=== PATIENT | male | born 1990 | race Hispanic/Latino ===

== ENCOUNTER 2025-03-09 07:42 | Emergency (ER) | payer OTHER ==
--- OUTSIDE RECORDS SUMMARY | 2025-03-09 07:47 | XMS REPORT | Continuity of Care Document ---
Author Name Unknown Address [address] [facility] [place] [address] [facility] [place] Address [address] [facility] [address] [place] [address] Care Team Providers Care Wrinkle Chaser Name Role Phone Tayler Oneal Attending Clinician Unavailable Kassy Qureshi Attending Clinician Unavailable Raina Katz Attending Clinician Unavailable Payers Payer Name Policy Type Policy Number Effective Date Expirati on Date Source AETNA 53 [id number] [facility] AETNA 53 [id number] 2022 00:00:00 [place] [address] [id number] 2018 00:00:00 [facility] Problems Condition Name Condition Details Condition Category Status Onset Date Resolution Date Last Treatment Date Treating Clinician Comments Source [id number] GERD without esophagiti s Problem [facility] [id number] Fatty liver disease, nonalcohol ic Problem [facility] [id number] Liver enzyme elevation Problem [facility] [id number] Encounter for general adult medical examinatio n with abnormal findings Problem [facility] Elevated levels of transamina se & lactic acid dehydrogen ase Elevated LDH Problem [facility] History of Peacock's palsy H/O Peacock's palsy Problem [facility] [id number] Polydipsia Problem Comm on [facility] Anxiety Anxiety Problem Common [facility] [id number] Exercise intoleranc e Problem Common [facility] Primary insomnia Primary insomnia Problem [facility] Fatigue Fatigue, unspecifie d type Problem [facility] [id number] Morbid (severe) obesity due to excess calories Problem Common [facility] Mild major depression , single episode Current mild episode of major depressive disorder, unspecifie d whether recurrent Problem [facility] [id number] Polyuria Problem [facility] [id number] Obstructiv e sleep apnea (adult) (pediatric ) Problem [facility] [id number] Paresthesi a of skin Problem [facility] [id number] Hyperlipid emia, mixed Problem [facility] [id number] Essential hypertensi on Problem Common [facility] [id number] Anesthesia of skin Problem [facility] Gastroesop hageal reflux disease Gastroesop hageal reflux disease, unspecifie d whether esophagiti s present Problem [facility] [id number] Mild exercise-i nduced asthma Problem [facility] Allergic rhinitis Non-season al allergic rhinitis, unspecifie d trigger Problem [facility] Vitamin D deficiency Vitamin D deficiency Problem [facility] [id number] Uncontroll ed type 2 diabetes mellitus with hyperglyce bobbi Problem [facility] [id number] Dependence on other enabling machines and devices Problem [facility] Allergies, Adverse Reactions, Alerts Allergy Name Allergy Type Status Severity Reaction(s) Onset Date Inactive Date Treating Clinician Comments Source rosuvast atin rosuvast atin Active Unknown [facility] Social History Social Habit Start Date Stop Date Quantity Comments Source History of Tobacco Use [facility] Sex Assigned At [facility] Smoking Status Start Date Stop Date Source Never Smoker [facility] Medications Ordered Medication Name Filled Medication Name Start Date Stop Date Current Medication? Ordering Clinician Indication Dosage Frequency Signature (SIG) Comments Components Source Albuterol Sulfate 108 (90 Base) MCG/ACT Albuterol Sulfate 108 (90 Base) MCG/ACT 3- 00:00: 00 No 1{puff_ as_need ed} 6xD Albuterol Sulfate 108 (90 Base) MCG/ACT metFORMIN HCl ER 500 MG metFORMIN HCl ER 500 MG 4-10 00:00: 00 No 1{table t_with_ evening _meal} BID metFORMIN HCl ER 500 MG Pravastatin Sodium 20 MG Pravastatin Sodium 20 MG 3- 00:00: 00 No 1{table t} QD Pravastati n Sodium 20 MG Kenalog (Triamcinol one) Kenalog (Triamcinol one) 2017-10 00:00: 00 No 40mg [facility] Flonase 50 MCG/ACT Flonase 50 MCG/ACT No 1{spray _in_eac h_nostr il} QD Flonase 50 MCG/ACT ZyrTEC Allergy 10 MG ZyrTEC Allergy 10 MG No 1{table t} QD ZyrTEC Allergy 10 MG Albuterol Sulfate HFA 108 (90 Base) MCG/ACT Albuterol Sulfate HFA 108 (90 Base) MCG/ACT No 1{puff_ as_need ed} Albuterol Sulfate HFA 108 (90 Base) MCG/ACT FreeStyle Lite Test - FreeStyle Lite Test - No FreeStyle Lite Test - Mounjaro 12.5 MG/0.5ML Mounjaro 12.5 MG/0.5ML No .5{ml} Mounjaro 12.5 MG/0.5ML Immunizations Ordered Immunization Name Filled Immunization Name Date Status Comments Source Moderna COVID-19 Vaccine (Low Dose Booster) Moderna COVID-19 Vaccine (Low Dose Booster) 2021-09-14 16:08:00 [facility] Moderna COVID-19 Vaccine (Low Dose Booster) Moderna COVID-19 Vaccine (Low Dose Booster) 2021-09-14 16:08:00 [facility] Moderna COVID-19 Vaccine (Low Dose Booster) Moderna COVID-19 Vaccine (Low Dose Booster) 2021-09-14 16:08:00 Completed [facility] Moderna COVID-19 Vaccine (Low Dose Booster) Moderna COVID-19 Vaccine (Low Dose Booster) 2021-09-14 16:08:00 Completed [facility] Moderna COVID-19 Vaccine (Low Dose Booster) Moderna COVID-19 Vaccine (Low Dose Booster) 2021-09-14 16:08:00 Completed [facility] 2021-07-12 09:37:00 [facility] 2021-07-12 09:37:00 [facility] 2021-07-12 09:37:00 Completed [facility] 2021-07-12 09:37:00 [facility] 2021-07-12 09:37:00 [facility] 2021-07-12 09:37:00 Completed [facility] Moderna COVID-19 Vaccine Moderna COVID-19 Vaccine 2021-01-10 16:09:00 Completed [facility] Moderna COVID-19 Vaccine Moderna COVID-19 Vaccine 2021-01-10 16:09:00 Completed [facility] Moderna COVID-19 Vaccine Moderna COVID-19 Vaccine 2021-01-10 16:09:00 Completed [facility] Moderna COVID-19 Vaccine Moderna COVID-19 Vaccine 2021-01-10 16:09:00 Completed [facility] Moderna COVID-19 Vaccine Moderna COVID-19 Vaccine 2021-01-10 16:09:00 Completed [facility] Moderna COVID-19 Vaccine Moderna COVID-19 Vaccine 2020-12-15 16:09:00 Completed [facility] Moderna COVID-19 Vaccine Moderna COVID-19 Vaccine 2020-12-15 16:09:00 Completed [facility] Moderna COVID-19 Vaccine Moderna COVID-19 Vaccine 2020-12-15 16:09:[facility] COVID-19 Vacc[facility] 2020-12-15 16:09:00 Completed [facility] Moderna COVID-19 Vaccine Moderna COVID-19 Vaccine 2020-12-15 16:09:00 Completed [facility] Fluarix (IIV4) - SDS - 0.5mL Fluarix (IIV4) - SDS - 0.5mL 2020-07-09 11:31:00 Completed [facility] Afluria single dose Afluria single dose 11:31:00 Completed [facility] Afluria single dose Afluria single dose 11:31:00 Completed [facility] Afluria single dose Afluria single dose 11:31:00 Completed [facility] Afluria single dose Afluria single dose 11:31:00 Completed [facility] Afluria single dose Afluria single dose 11:31:00 [facility] Kenalog (Triamcinolone) Kenalog (Triamcinolone) 2019-07-29 16:54:00 Completed [facility] Flucelvax - multidose vial Flucelvax - multidose vial 2019-07-29 16:53:00 Completed [facility] Flucelvax - multidose vial Flucelvax - multidose vial 2019-07-29 16:53:00 Completed [facility] Flucelvax - multidose vial Flucelvax - multidose vial 2019-07-29 16:53:00 Completed [facility] Flucelvax - multidose vial Flucelvax - multidose vial 2019-07-29 16:53:00 Completed [facility] Flucelvax - multidose vial Flucelvax - multidose vial 2019-07-29 16:53:00 Completed [facility] Flucelvax - multidose vial Flucelvax - multidose vial 2019-07-29 16:53:00 Completed [facility] Flucelvax - multidose vial Flucelvax - multidose vial 2019-07-29 00:00:00 Completed [facility] Kenalog (Triamcinolone) Kenalog (Triamcinolone) 2018-08-15 15:53:00 Completed [facility] Moderna COVID-19 Vaccine (Low Dose Booster) Moderna COVID-19 Vaccine (Low Dose Booster) Unknown Completed [facility] Moderna COVID-19 Vaccine Moderna COVID-19 Vaccine Unknown Completed [facility] Afluria single dose Afluria single dose Unknown Completed [facility] Flucelvax - multidose vial Flucelvax - multidose vial Unknown Completed [facility] Afluria Afluria Unknown Completed [facility] Moderna COVID-19 Vaccine (Low Dose Booster) Moderna COVID-19 Vaccine (Low Dose Booster) Unknown Completed [facility] Moderna COVID-19 Vaccine Moderna COVID-19 Vaccine Unknown Completed [facility] Afluria single dose Afluria single dose Unknown Completed [facility] Flucelvax - multidose vial Flucelvax - multidose vial Unknown Completed [facility] Afluria Afluria Unknown Completed [facility] Moderna COVID-19 Vaccine (Low Dose Booster) Moderna COVID-19 Vaccine (Low Dose Booster) Unknown Completed [facility] Moderna COVID-19 Vaccine Moderna COVID-19 Vaccine Unknown Completed [facility] Afluria single dose Afluria single dose Unknown Completed [facility] Flucelvax - multidose vial Flucelvax - multidose vial Unknown Completed [facility] Afluria Afluria Unknown Completed [facility] Moderna COVID-19 Vaccine (Low Dose Booster) Moderna COVID-19 Vaccine (Low Dose Booster) Unknown Completed [facility] Moderna COVID-19 Vaccine Moderna COVID-19 Vaccine Unknown Completed [facility] Afluria (IIV4) - 3 years and older - SDS - 0.5mL Afluria (IIV4) - 3 years and older - SDS - 0.5mL Unknown Completed [facility] Flucelvax (ccIIV4) - MDV - 0.5mL Flucelvax (ccIIV4) - MDV - 0.5mL Unknown Completed [facility] Afluria Afluria Unknown Completed [facility] Moderna COVID-19 Vaccine (Low Dose Booster) Moderna COVID-19 Vaccine (Low Dose Booster) Unknown Completed [facility] Moderna COVID-19 Vaccine Moderna COVID-19 Vaccine Unknown Completed [facility] Afluria (IIV4) - 3 years and older - SDS - 0.5mL Afluria (IIV4) - 3 years and older - SDS - 0.5mL Unknown Completed [facility] Flucelvax (ccIIV4) - MDV - 0.5mL Flucelvax (ccIIV4) - MDV - 0.5mL Unknown Completed [facility] Afluria Afluria Unknown Completed [facility] Moderna COVID-19 Vaccine (Low Dose Booster) Moderna COVID-19 Vaccine (Low Dose Booster) Unknown Completed [facility] Moderna COVID-19 Vaccine Moderna COVID-19 Vaccine Unknown Completed [facility] Afluria (IIV4) - 3 years and older - SDS - 0.5mL Afluria (IIV4) - 3 years and older - SDS - 0.5mL Unknown Completed [facility] Flucelvax (ccIIV4) - MDV - 0.5mL Flucelvax (ccIIV4) - MDV - 0.5mL Unknown Completed [facility] Afluria Afluria Unknown Completed [facility] - [facility] Moderna COVID-19 Vaccine (Low Dose Booster) Moderna COVID-19 Vaccine (Low Dose Booster) Unknown Completed [facility] Moderna COVID-19 Vaccine Moderna COVID-19 Vaccine Unknown Completed [facility] Afluria (IIV4) - 3 years and older - SDS - 0.5mL Afluria (IIV4) - 3 years and older - SDS - 0.5mL Unknown Completed [facility] Flucelvax (ccIIV4) - MDV - 0.5mL Flucelvax (ccIIV4) - MDV - 0.5mL Unknown Completed [facility] Afluria Afluria Unknown Completed [facility] Moderna COVID-19 Vaccine (Low Dose Booster) Moderna COVID-19 Vaccine (Low Dose Booster) Unknown Completed [facility] Moderna COVID-19 Vaccine Moderna COVID-19 Vaccine Unknown Completed [facility] Afluria (IIV4) - 3 years and older - SDS - 0.5mL Afluria (IIV4) - 3 years and older - SDS - 0.5mL Unknown Completed [facility] Flucelvax (ccIIV4) - MDV - 0.5mL Flucelvax (ccIIV4) - MDV - 0.5mL Unknown Completed [facility] Afluria Afluria Unknown Completed [facility] Moderna COVID-19 Vaccine (Low Dose Booster) Moderna COVID-19 Vaccine (Low Dose Booster) Unknown Completed [facility] Moderna COVID-19 Vaccine Moderna COVID-19 Vaccine Unknown Completed [facility] Afluria (IIV4) - 3 years and older - SDS - 0.5mL Afluria (IIV4) - 3 years and older - SDS - 0.5mL Unknown Completed [facility] Flucelvax (ccIIV4) - MDV - 0.5mL Flucelvax (ccIIV4) - MDV - 0.5mL Unknown Completed [facility] Afluria Afluria Unknown Completed [facility] MODERNA COVID-19 VACCINE (LOW DOSE BOOSTER) MODERNA COVID-19 VACCINE (LOW DOSE BOOSTER) Unknown Completed [facility] Moderna COVID-19 Vaccine Moderna COVID-19 Vaccine Unknown Completed [facility] Afluria (IIV4) - 3 years and older - SDS - 0.5mL Afluria (IIV4) - 3 years and older - SDS - 0.5mL Unknown Completed [facility] Flucelvax (ccIIV4) - MDV - 0.5mL Flucelvax (ccIIV4) - MDV - 0.5mL Unknown Completed [facility] Afluria [facility]fluria [facility] MODERNA COVID-19 VACCINE (LOW DOSE BOOSTER) Unknown Completed [facility] Moderna COVID-19 Vaccine Moderna COVID-19 Vaccine Unknown Completed [facility] Afluria (IIV4) - 3 years and older - SDS - 0.5mL Afluria (IIV4) - 3 years and older - SDS - 0.5mL Unknown Completed [facility] Flucelvax (ccIIV4) - MDV - 0.5mL Flucelvax (ccIIV4) - MDV - 0.5mL Unknown Completed [facility] Afluria Afluria Unknown Completed [facility] Boostrix (Tdap) Boostrix (Tdap) Unknown Completed [facility] Vital Signs Vital Name Observation Time Observation Value Comments S ource height 2024-11-18 11:00:00 66 [in_i] Commo n [facility] weight 2024-11-18 11:00:00 169 [lb_av] Comm on [facility] bmi 2024-11-18 11:00:00 27.27 kg/m2 Comm on [facility] height 2024-09-17 15:40:00 66 [in_i] Commo n [facility] weight 2024-09-17 15:40:00 195 [lb_av] Comm on [facility] bmi 2024-09-17 15:40:00 31.47 kg/m2 Comm on [facility] height 2024-08-18 12:00:00 66 [in_i] Commo n [facility] weight 2024-08-18 12:00:00 209 [lb_av] Comm on [facility] bmi 2024-08-18 12:00:00 33.73 kg/m2 Comm on [facility] height 2024-04-28 16:00:00 66 [in_i] Commo n [facility] weight 2024-04-28 16:00:00 205 [lb_av] Comm on [facility] bmi 2024-04-28 16:00:00 33.08 kg/m2 Comm on [facility] height 2024-01-23 13:00:00 66 [in_i] Commo n [facility] weight 2024-01-23 13:00:00 208 [lb_av] Comm on [facility] temperature 2024-01-23 13:00:00 97.0 [degF] Com mon [facility] bmi 2024-01-23 13:00:00 33.57 kg/m2 Comm on [facility] oximetry 2024-01-23 13:00:00 97 % Commo n [facility] respiratory rate 2024-01-23 13:00:00 16 /min Common [facility] blood pressure systolic 2024-01-23 13:00:00 124 mm[Hg] Common [facility] blood pressure diastolic 2024-01-23 13:00:00 72 mm[Hg] Common [facility] height 2023-10-24 16:00:00 66 [in_i] Commo n [facility] weight 2023-10-24 16:00:00 208 [lb_av] Comm on [facility] temperature 2023-10-24 16:00:00 97.2 [degF] Com mon [facility] bmi 2023-10-24 16:00:00 33.57 kg/m2 Comm on [facility] oximetry 2023-10-24 16:00:00 99 % Commo n [facility] respiratory rate 2023-10-24 16:00:00 16 /min Common [facility] blood pressure systolic 2023-10-24 16:00:00 124 mm[Hg] [facility] blood pressure diastolic 2023-10-24 16:00:00 72 mm[Hg] [facility] height 2023-10-11 08:20:00 66 [in_i] Commo n [facility] weight 2023-10-11 08:20:00 202.4 [lb_av] Co mmon [facility] temperature 2023-10-11 08:20:00 98.5 [degF] Com [facility] bmi 2023-10-11 08:20:00 32.66 kg/m2 Comm on [facility] oximetry 2023-10-11 08:20:00 99 % Commo n [facility] respiratory rate 2023-10-11 08:20:00 16 /min Common [facility] blood pressure systolic 2023-10-11 08:20:00 124 mm[Hg] Common [facility] blood pressure diastolic 2023-10-11 08:20:00 82 mm[Hg] Common [facility] height 2023-09-21 11:20:00 66 [in_i] Commo n [facility] weight 2023-09-21 11:20:00 209.4 [lb_av] Co mmon [facility] temperature 2023-09-21 11:20:00 97.9 [degF] Com mon [facility] bmi 2023-09-21 11:20:00 33.79 kg/m2 Comm on [facility] oximetry 2023-09-21 11:20:00 97 % Commo n [facility] respiratory rate 2023-09-21 11:20:00 16 /min Common [facility] blood pressure systolic 2023-09-21 11:20:00 128 mm[Hg] Common [facility] blood pressure diastolic 2023-09-21 11:20:00 70 mm[Hg] [facility] height 2023-07-24 16:20:00 66 [in_i] Commo n [facility] weight 2023-07-24 16:20:00 211 [lb_av] Comm on [facility] temperature 2023-07-24 16:20:00 97.2 [degF] Com [facility] bmi 2023-07-24 16:20:00 34.05 kg/m2 Comm on [facility] oximetry 2023-07-24 16:20:00 98 % Commo n [facility] respiratory rate 2023-07-24 16:20:00 16 /min [facility] blood pressure systolic 2023-07-24 16:20:00 124 mm[Hg] Common [facility] blood pressure diastolic 2023-07-24 16:20:00 70 mm[Hg] [facility] height 2023-04-18 15:40:00 66 [in_i] Commo n [facility] weight 2023-04-18 15:40:00 214 [lb_av] Comm on [facility] temperature 2023-04-18 15:40:00 97.4 [degF] Com [facility] bmi 2023-04-18 15:40:00 34.54 kg/m2 Comm on [facility] oximetry 2023-04-18 15:40:00 98 % Commo n [facility] respiratory rate 2023-04-18 15:40:00 16 /min Common [facility] blood pressure systolic 2023-04-18 15:40:00 118 mm[Hg] Common [facility] blood pressure diastolic 2023-04-18 15:40:00 68 mm[Hg] [facility] height 2023-01-17 16:00:00 66 [in_i] Commo n [facility] weight 2023-01-17 16:00:00 214.6 [lb_av] Co mmon [facility] temperature 2023-01-17 16:00:00 97.5 [degF] Com mon [facility] bmi 2023-01-17 16:00:00 34.63 kg/m2 Comm on [facility] oximetry 2023-01-17 16:00:00 99 % Commo n [facility] respiratory rate 2023-01-17 16:00:00 17 /min [facility] blood pressure systolic 2023-01-17 16:00:00 126 mm[Hg] [facility] blood pressure diastolic 2023-01-17 16:00:00 75 mm[Hg] [facility] height 2022-07-20 11:20:00 66 [in_i] Commo n [facility] weight 2022-07-20 11:20:00 203 [lb_av] Comm on [facility] temperature 2022-07-20 11:20:00 98 [degF] Comm on [facility] bmi 2022-07-20 11:20:00 32.76 kg/m2 Comm on [facility] height 2022-04-07 13:40:00 66 [in_i] Commo n [facility] weight 2022-04-07 13:40:00 204 [lb_av] Comm on [facility] temperature 2022-04-07 13:40:00 97.3 [degF] Com mon [facility] bmi 2022-04-07 13:40:00 32.92 kg/m2 Comm on [facility] height 2022-01-10 08:00:00 66 [in_i] Commo n [facility] weight 2022-01-10 08:00:00 198 [lb_av] Comm on [facility] bmi 2022-01-10 08:00:00 31.95 kg/m2 Comm on [facility] height 2021-10-04 08:20:00 66 [in_i] Commo n [facility] weight 2021-10-04 08:20:00 198 [lb_av] Comm on [facility] bmi 2021-10-04 08:20:00 31.95 kg/m2 Comm on [facility] height 2021-07-12 08:20:00 66 [in_i] Commo n [facility] weight 2021-07-12 08:20:00 194 [lb_av] Comm on [facility] temperature 2021-07-12 08:20:00 97.7 [degF] Com [facility] bmi 2021-07-12 08:20:00 31.31 kg/m2 Comm on [facility] oximetry 2021-07-12 08:20:00 98 % Commo n [facility] respiratory rate 2021-07-12 08:20:00 16 /min [facility] blood pressure systolic 2021-07-12 08:20:00 117 mm[Hg] [facility] blood pressure diastolic 2021-07-12 08:20:00 68 mm[Hg] [facility] Encounters Start Date/Time End Date/Time Encounter Type Admission Type Attending [facility] Care Facility Care Department Encounter ID Source 2024-08-19 09:02:00 Outpatient Tayler Oneal [facility] [id number] [facility] 2024-08-15 08:36:00 Outpatient OnealTayler [facility] [id number] [facility] 2024-04-24 16:08:00 Outpatient OnealDashai [facility] [id number] [facility] 2024-01-22 08:41:00 Outpatient Oneal, Tayler [facility] [id number] [facility] 2023-10-24 15:57:00 Outpatient Oneal, Tayler [facility] [id number] [facility] 2023-10-23 14:10:00 Outpatient OnealDashai [facility] [id number] [facility] 2023-04-18 15:42:00 Outpatient OnealTayler [facility] [id number] [facility] 2023-04-16 10:08:00 Outpatient OnealTayler [facility] [id number] [facility] 2023-01-16 08:22:00 Outpatient KieraMamiea [facility] [id number] [facility] 2023-01-09 09:02:00 Outpatient KieraMamiea [facility] [id number] [facility] 2022-07-18 13:52:00 Outpatient Katz, Na [facility] [id number] [facility] 2022-07-10 15:28:01 Outpatient Katz, Na [facility] [id number] [facility] 2022-04-05 11:12:00 Outpatient Katz, Na [facility] [id number] [facility] 2021-11-09 14:19:31 Outpatient Katz, Na [facility] [id number] [facility] 2021-11-09 13:17:14 Outpatient Katz, Na [facility] [id number] [facility] 2021-11-09 12:43:00 Outpatient Katz, Na [facility] [id number] [facility] 2021-11-09 12:42:40 Outpatient Katz, Na [facility] [id number] [facility] 2021-11-09 12:40:32 Outpatient Katz, Na [facility] [id number] [facility] 2021-11-09 12:20:38 Outpatient Katz, Na [facility] [id number] [facility] 2021-11-09 12:20:02 Outpatient Katz, Na [facility] [id number] [facility] 2021-11-09 12:14:59 Outpatient Katz, Na [facility] [id number] [facility] 2021-11-09 12:00:55 Outpatient Katz, Na [facility] [id number] [facility] 2021-11-09 11:57:47 Outpatient Katz, Na [facility] [id number] [facility] 2021-11-09 11:49:13 Outpatient Katz, Na [facility] [id number] [facility] 2025-02-11 00:00:00 2025-02-11 00:00:00 (WEB) [facility] [id number] [facility] 2025-01-28 00:00:00 2025-01-28 00:00:00 (TEL) [facility] [id number] [facility] 2025-01-13 00:00:00 2025-01-13 00:00:00 (WEB) [facility] [id number] [facility] 2024-12-31 00:00:00 2024-12-31 00:00:00 (WEB) STLMLC STLMLC [id number] [facility] 2024-12-29 00:00:00 2024-12-29 00:00:00 (WEB) STLMLC STLMLC [id number] [facility] 2024-12-15 00:00:00 2024-12-15 00:00:00 (WEB) STLMLC STLMLC [id number] [facility] 2024-12-15 00:00:00 2024-12-15 00:00:00 (WEB) STLMLC STLMLC [id number] [facility] 2024-11-18 00:00:00 2024-11-18 00:00:00 OFFICE VISIT ESTAB PT LEVEL 4 STLMLC STLMLC [id number] [facility] 2024-11-10 00:00:00 2024-11-10 00:00:00 (TEL) STLMLC STLMLC [id number] [facility] 2024-10-17 00:00:00 2024-10-17 00:00:00 (TEL) STLMLC STLMLC [id number] [facility] 2024-09-17 00:00:00 2024-09-17 00:00:00 OFFICE VISIT ESTAB PT LEVEL 4 STLMLC STLMLC [id number] [facility] 2024-08-21 00:00:00 2024-08-21 00:00:00 (WEB) STLMLC STLMLC [id number] [facility] 2024-08-19 00:00:00 2024-08-19 00:00:00 (TEL) STLMLC STLMLC [id number] [facility] 2024-08-18 00:00:00 2024-08-18 00:00:00 OFFICE VISIT ESTAB PT LEVEL 4 STLMLC STLMLC [id number] [facility] 2024-07-28 00:00:00 2024-07-28 00:00:00 (TEL) STLMLC STLMLC [id number] [facility] 2024-06-19 00:00:00 2024-06-19 00:00:00 (TEL) STLMLC STLMLC [id number] [facility] 2024-04-28 00:00:00 2024-04-28 00:00:00 OFFICE VISIT ESTAB PT LEVEL 4 STLMLC STLMLC [id number] [facility] 2024-01-23 00:00:00 2024-01-23 00:00:00 (WELLNESS) Wellness Visit STLMLC STLMLC [id number] [facility] 2023-10-24 00:00:00 2023-10-24 00:00:00 OFFICE VISIT ESTAB PT LEVEL 4 STLMLC STLMLC [id number] [facility] 2023-10-11 00:00:00 2023-10-11 00:00:00 OFFICE VISIT ESTAB PT LEVEL 3 STLMLC STLMLC [id number] [facility] 2023-09-21 00:00:00 2023-09-21 00:00:00 OFFICE VISIT ESTAB PT LEVEL 3 STLMLC STLMLC [id number] [facility] 2023-08-02 00:00:00 2023-08-02 00:00:00 (TEL) STLMLC STLMLC [id number] [facility] 2023-07-24 00:00:00 2023-07-24 00:00:00 OFFICE VISIT ESTAB PT LEVEL 4 STLMLC STLMLC [id number] [facility] 2023-05-16 00:00:00 2023-05-16 00:00:00 (TEL) STLMLC STLMLC [id number] [facility] 2023-05-15 00:00:00 2023-05-15 00:00:00 (TEL) STLMLC STLMLC [id number] [facility] 2023-04-18 00:00:00 2023-04-18 00:00:00 OFFICE VISIT ESTAB PT LEVEL 4 STLMLC STLMLC [id number] [facility] 2023-01-17 00:00:00 2023-01-17 00:00:00 (TEL) STLMLC STLMLC [id number] [facility] 2023-01-17 00:00:00 2023-01-17 00:00:00 OFFICE VISIT ESTAB PT LEVEL 4 STLMLC STLMLC [id number] [facility] 2022-10-23 00:00:00 2022-10-23 00:00:00 (TEL) STLMLC STLMLC [id number] [facility] 2022-08-16 00:00:00 2022-08-16 00:00:00 (TEL) STLMLC STLMLC [id number] [facility] 2022-07-20 00:00:00 2022-07-20 00:00:00 OFFICE VISIT ESTAB PT LEVEL 4 STLMLC STLMLC [id number] [facility] 2022-05-08 00:00:00 2022-05-08 00:00:00 (TEL) STLMLC STLMLC [id number] [facility] 2022-05-05 00:00:00 2022-05-05 00:00:00 (TEL) STLMLC STLMLC [id number] [facility] 2022-04-07 00:00:00 2022-04-07 00:00:00 OFFICE VISIT ESTAB PT LEVEL 4 STLMLC STLMLC [id number] [facility] 2022-01-10 00:00:00 2022-01-10 00:00:00 OFFICE VISIT ESTAB PT LEVEL 4 STLMLC STLMLC [id number] [facility] 2021-10-04 00:00:00 2021-10-04 00:00:00 OFFICE VISIT ESTAB PT LEVEL 4 STLMLC STLMLC [id number] [facility] 2021-09-14 00:00:00 2021-09-14 00:00:00 (COVID Inj) COVID Injection STLMLC STLMLC [id number] [facility] 2021-09-12 00:00:00 2021-09-12 00:00:00 (TEL) STLMLC STLMLC [id number] [facility] 2021-07-12 00:00:00 2021-07-12 00:00:00 OFFICE VISIT ESTAB PT LEVEL 4 STLMLC STLMLC [id number] [facility] 2021-04-05 00:00:00 2021-04-05 00:00:00 Outpatient STLMLC STLMLC [id number] [facility] 2021-01-04 00:00:00 2021-01-04 00:00:00 Outpatient STLMLC STLMLC [id number] [facility] 2020-10-29 00:00:00 2020-10-29 00:00:00 Outpatient STLMLC STLMLC [id number] [facility] 2020-10-28 00:00:00 2020-10-28 00:00:00 Outpatient STLMLC STLMLC [id number] [facility] 2020-10-06 00:00:00 2020-10-06 00:00:00 Outpatient STLMLC STLMLC [id number] [facility] 2020-09-22 00:00:00 2020-09-22 00:00:00 Outpatient STLMLC STLMLC [id number] [facility] 2020-08-18 00:00:00 2020-08-18 00:00:00 Outpatient STLMLC STLMLC [id number] [facility] 2020-08-11 00:00:00 2020-08-11 00:00:00 Outpatient STLMLC STLMLC [id number] [facility] 2020-08-05 00:00:00 2020-08-05 00:00:00 Outpatient STLMLC STLMLC [id number] [facility] 2020-07-09 00:00:00 2020-07-09 00:00:00 Outpatient STLMLC STLMLC [id number] [facility] 2019-09-26 13:00:00 2019-09-26 13:00:[address] [facility] [id number] [facility] 2019-09-22 16:47:00 2019-09-22 16:47:[address] [facility] [id number] [facility] 2019-07-29 15:00:00 2019-07-29 15:00:00 [facility] [id number] [facility] 2019-05-16 16:27:00 2019-05-16 16:27:00 [facility] [id number] [facility] 2019-04-28 14:40:00 2019-04-28 14:40:00 [facility] [id number] [facility] 2019-01-27 13:40:00 2019-01-27 13:40:00 [facility] [id number] [facility] 2018-10-22 15:30:00 2018-10-22 15:30:00 [facility] [id number] [facility] 2018-05-22 07:36:00 2018-05-22 07:36:00 [facility] [id number] [facility] 2018-05-21 08:15:00 2018-05-21 08:15:[address] [facility] [id number] [facility] Results Test Description Test Time Test Comments Results Result Co mments Source COMPREHENSIVE METABOLIC [id number] 00:00:00* Test Item Value Reference Range Interpretation Comme nts NUCLEATED RBCS (test code = 81059-3) 0.0 /100 WBC'S See_Comment [Automated message] The system which generated this result transmitted reference range: 0.0 /100 WBC'S. The reference range was not used to interpret this result as normal/abnormal. ABSOLUTE EOSINOPHILS (test code = 35948-8) 0.22 K/UL See_Comment [Automated message] The system which generated this result transmitted reference range: 0.00-0.50 K/UL. The reference range was not used to interpret this result as normal/abnormal. ABSOLUTE LYMPHOCYTES (test code = 58035-4) 1.95 K/UL See_Comment [Automated message] The system which generated this result transmitted reference range: 1.00-4.00 K/UL. The reference range was not used to interpret this result as normal/abnormal. ABSOLUTE MONOCYTES (test code = 02035-0) 0.35 K/UL See_Comment [Automated message] The system which generated this result transmitted reference range: 0.20-1.00 K/UL. The reference range was not used to interpret this result as normal/abnormal. ABSOLUTE NEUTROPHILS (test code = 90757-5) 3.66 K/UL See_Comment [Automated message] The system which generated this result transmitted reference range: 1.50-7.50 K/UL. The reference range was not used to interpret this result as normal/abnormal. BASOPHILS (test code = 95119-0) 0.6 % EOSINOPHILS (test code = 85351-2) 3.5 % HEMATOCRIT (test code = 15135-4) 46.7 % See_Comment [Automated messa ge] The system which generated this result transmitted reference range: 40.0-51.0 %. The reference range was not used to interpret this result as normal/abnormal. HEMOGLOBIN (test code = 718-7) 15.3 G/DL See_Comment [Automated messa ge] The system which generated this result transmitted reference range: 13.5-17.0 G/DL. The reference range was not used to interpret this result as normal/abnormal. LYMPHOCYTES (test code = 51608-4) 31.2 % MCH (test code = 52011-3) 27.8 PG See_Comment [Automated messa ge] The system which generated this result transmitted reference range: 25.0-33.0 PG. The reference range was not used to interpret this result as normal/abnormal. MCHC (test code = 70798-0) 32.8 G/DL See_Comment [Automated messa ge] The system which generated this result transmitted reference range: 31.0-36.0 G/DL. The reference range was not used to interpret this result as normal/abnormal. MCV (test code = 21381-5) 84.8 fL See_Comment [Automated messa ge] The system which generated this result transmitted reference range: 80.0-99.0 fL. The reference range was not used to interpret this result as normal/abnormal. MONOCYTES (test code = 06209-3) 5.6 % NEUTROPHILS (test code = 03955-4) 58.5 % PLATELET COUNT (test code = 67939-7) 255 K/UL See_Comment [Automated messa ge] The system which generated this result transmitted reference range: 130-400 K/UL. The reference range was not used to interpret this result as normal/abnormal. RBC (test code = 00139-4) 5.51 M/UL See_Comment [Automated messa ge] The system which generated this result transmitted reference range: 4.50-6.10 M/UL. The reference range was not used to interpret this result as normal/abnormal. RDW (test code = 15264-5) 12.8 % See_Comment [Automated messa ge] The system which generated this result transmitted reference range: 11.5-15.0 %. The reference range was not used to interpret this result as normal/abnormal. WBC (test code = 31726-9) 6.3 K/UL See_Comment [Automated messa ge] The system which generated this result transmitted reference range: 3.5-11.0 K/UL. The reference range was not used to interpret this result as normal/abnormal. HEMOGLOBIN A1c (test code = 4548-4) 7.0 % See_Comment H [Automated messa ge] The system which generated this result transmitted reference range: 4.2-5.6 %. The reference range was not used to interpret this result as normal/abnormal. CALC LDL CHOL (test code = 67489-7) 85 MG/DL See_Comment [Automated messa ge] The system which generated this result transmitted reference range: <100 MG/DL. The reference range was not used to interpret this result as normal/abnormal. CHOLESTEROL (test code = 2093-3) 139 MG/DL See_Comment [Automated [employer]] The system which generated this result transmitted reference range: <200 MG/DL. The reference range was not used to interpret this result as normal/abnormal. HDL CHOLESTEROL (test code = 2085-9) 34 MG/DL See_Comment L [Automated [employer]] The system which generated this result transmitted reference range: >39 MG/DL. The reference range was not used to interpret this result as normal/abnormal. RISK RATIO LDL/HDL (test code = 87546-0) 2.50 RATIO See_Comment [Automated message] The system which generated this result transmitted reference range: <3.55 RATIO. The reference range was not used to interpret this result as normal/abnormal. TRIGLYCERIDES (test code = 2571-8) 104 MG/DL See_Comment [Automated [employer]] The system which generated this result transmitted reference range: <150 MG/DL. The reference range was not used to interpret this result as normal/abnormal. ALBUMIN, URINE, RANDOM (test code = 92874-8) <0.2 MG/DL NOT ESTAB MG/DL CALC ALBUMIN/CREAT, RND (test code = 63988-6) <4 MG/G See_Comment [Automated [employer]] The system which generated this result transmitted reference range: <30 MG/G. The reference range was not used to interpret this result as normal/abnormal. CREATININE, URINE, CONC. (test code = 2161-8) 45.2 MG/DL NOT ESTAB MG/DL ALBUMIN (test code = 1751-7) 4.9 G/DL See_Comment [Automated [employer]] The system which generated this result transmitted reference range: 3.5-5.2 G/DL. The reference range was not used to interpret this result as normal/abnormal. ALKALINE PHOSPHATASE (test code = 6768-6) 91 U/L See_Comment [Automated message] The system which generated this result transmitted reference range: 40-117 U/L. The reference range was not used to interpret this result as normal/abnormal. BILIRUBIN, TOTAL (test code = 1975-2) 0.6 MG/DL See_Comment [Automated messa ge] The system which generated this result transmitted reference range: <=1.2 MG/DL. The reference range was not used to interpret this result as normal/abnormal. BUN (test code = 3094-0) 12 MG/DL See_Comment [Automated messa ge] The system which generated this result transmitted reference range: 6-20 MG/DL. The reference range was not used to interpret this result as normal/abnormal. CALCIUM (test code = 38977-1) 9.9 MG/DL See_Comment [Automated messa ge] The system which generated this result transmitted reference range: 8.5-10.5 MG/DL. The reference range was not used to interpret this result as normal/abnormal. CALC A/G RATIO (test code = 1759-0) 2.0 RATIO See_Comment [Automated messa ge] The system which generated this result transmitted reference range: 1.0-2.6 RATIO. The reference range was not used to interpret this result as normal/abnormal. CALC BUN/CREAT (test code = 3097-3) 14 RATIO See_Comment [Automated messa ge] The system which generated this result transmitted reference range: 6-28 RATIO. The reference range was not used to interpret this result as normal/abnormal. CALC GLOBULIN (test code = 51558-5) 2.4 G/DL See_Comment [Automated messa ge] The system which generated this result transmitted reference range: 1.9-3.7 G/DL. The reference range was not used to interpret this result as normal/abnormal. CARBON DIOXIDE (test code = 1963-8) 25 MEQ/L See_Comment [Automated messa ge] The system which generated this result transmitted reference range: 19-31 MEQ/L. The reference range was not used to interpret this result as normal/abnormal. CHLORIDE (test code = 2075-0) 104 MEQ/L See_Comment [Automated messa ge] The system which generated this result transmitted reference range: 95-107 MEQ/L. The reference range was not used to interpret this result as normal/abnormal. CREATININE (test code = 2160-0) 0.87 MG/DL See_Comment [Automated messa ge] The system which generated this result transmitted reference range: 0.80-1.40 MG/DL. The reference range was not used to interpret this result as normal/abnormal. eGFR (2020 CKD-EPI) (test code = 65611-4) 115 ML/MIN/1.73 See_Comment [Automated message] The system which generated this result transmitted reference range: >60 ML/MIN/1.73. The reference range was not used to interpret this result as normal/abnormal. GLUCOSE (test code = 1558-6) 134 MG/DL See_Comment H [Automated messa ge] The system which generated this result transmitted reference range: 70-99 MG/DL. The reference range was not used to interpret this result as normal/abnormal. POTASSIUM (test code = 2823-3) 4.3 MEQ/L See_Comment [Automated messa ge] The system which generated this result transmitted reference range: 3.5-5.4 MEQ/L. The reference range was not used to interpret this result as normal/abnormal. PROTEIN, TOTAL (test code = 2885-2) 7.3 G/DL See_Comment [Automated messa ge] The system which generated this result transmitted reference range: 6.1-8.3 G/DL. The reference range was not used to interpret this result as normal/abnormal. AST (test code = 1920-8) 57 U/L See_Comment H [Automated messa ge] The system which generated this result transmitted reference range: 9-50 U/L. The reference range was not used to interpret this result as normal/abnormal. ALT (test code = 1742-6) 89 U/L See_Comment H [Automated messa ge] The system which generated this result transmitted reference range: 5-50 U/L. The reference range was not used to interpret this result as normal/abnormal. SODIUM (test code = 2951-2) 142 MEQ/L See_Comment [Automated messa ge] The system which generated this result transmitted reference range: 133-146 MEQ/L. The reference range was not used to interpret this result as normal/abnormal. CBC W/AUTO [id number] 00:00:00* Test Item Value Reference Range Interpretation Comme nts NUCLEATED RBCS (test code = 41788-9) 0.0 /100 WBC'S See_Comment [Automated messa ge] The system which generated this result transmitted reference range: 0.0 /100 WBC'S. The reference range was not used to interpret this result as normal/abnormal. ABSOLUTE EOSINOPHILS (test code = 41074-2) 0.14 K/UL See_Comment [Automated messa ge] The system which generated this result transmitted reference range: 0.00-0.50 K/UL. The reference range was not used to interpret this result as normal/abnormal. ABSOLUTE LYMPHOCYTES (test code = 09919-3) 1.32 K/UL See_Comment [Automated messa ge] The system which generated this result transmitted reference range: 1.00-4.00 K/UL. The reference range was not used to interpret this result as normal/abnormal. ABSOLUTE MONOCYTES (test code = 73526-0) 0.36 K/UL See_Comment [Automated messa ge] The system which generated this result transmitted reference range: 0.20-1.00 K/UL. The reference range was not used to interpret this result as normal/abnormal. ABSOLUTE NEUTROPHILS (test code = 22029-6) 3.10 K/UL See_Comment [Automated messa ge] The system which generated this result transmitted reference range: 1.50-7.50 K/UL. The reference range was not used to interpret this result as normal/abnormal. BASOPHILS (test code = 86249-5) 0.8 % EOSINOPHILS (test code = 78235-8) 2.8 % HEMATOCRIT (test code = 83089-3) 45.1 % See_Comment [Automated messa ge] The system which generated this result transmitted reference range: 40.0-51.0 %. The reference range was not used to interpret this result as normal/abnormal. HEMOGLOBIN (test code = 718-7) 14.7 G/DL See_Comment [Automated messa ge] The system which generated this result transmitted reference range: 13.5-17.0 G/DL. The reference range was not used to interpret this result as normal/abnormal. LYMPHOCYTES (test code = 78773-7) 26.6 % MCH (test code = 94479-2) 27.6 PG See_Comment [Automated messa ge] The system which generated this result transmitted reference range: 25.0-33.0 PG. The reference range was not used to interpret this result as normal/abnormal. MCHC (test code = 08533-7) 32.6 G/DL See_Comment [Automated messa ge] The system which generated this result transmitted reference range: 31.0-36.0 G/DL. The reference range was not used to interpret this result as normal/abnormal. MCV (test code = 55499-9) 84.8 fL See_Comment [Automated messa ge] The system which generated this result transmitted reference range: 80.0-99.0 fL. The reference range was not used to interpret this result as normal/abnormal. MONOCYTES (test code = 38800-2) 7.2 % NEUTROPHILS (test code = 54452-3) 62.4 % PLATELET COUNT (test code = 25160-4) 258 K/UL See_Comment [Automated messa ge] The system which generated this result transmitted reference range: 130-400 K/UL. The reference range was not used to interpret this result as normal/abnormal. RBC (test code = 85532-7) 5.32 M/UL See_Comment [Automated messa ge] The system which generated this result transmitted reference range: 4.50-6.10 M/UL. The reference range was not used to interpret this result as normal/abnormal. RDW (test code = 49341-4) 13.5 % See_Comment [Automated messa ge] The system which generated this result transmitted reference range: 11.5-15.0 %. The reference range was not used to interpret this result as normal/abnormal. WBC (test code = 11461-8) 5.0 K/UL See_Comment [Automated messa ge] The system which generated this result transmitted reference range: 3.5-11.0 K/UL. The reference range was not used to interpret this result as normal/abnormal. CBC W/AUTO [id number] 00:00:00* Test Item Value Reference Range Interpretation Comme nts NUCLEATED RBCS (test code = 80569-7) 0.0 /100 WBC'S See_Comment [Automated messa ge] The system which generated this result transmitted reference range: 0.0 /100 WBC'S. The reference range was not used to interpret this result as normal/abnormal. ABSOLUTE EOSINOPHILS (test code = 43453-7) 0.18 K/UL See_Comment [Automated messa ge] The system which generated this result transmitted reference range: 0.00-0.50 K/UL. The reference range was not used to interpret this result as normal/abnormal. ABSOLUTE LYMPHOCYTES (test code = 88366-6) 1.93 K/UL See_Comment [Automated messa ge] The system which generated this result transmitted reference range: 1.00-4.00 K/UL. The reference range was not used to interpret this result as normal/abnormal. ABSOLUTE MONOCYTES (test code = 28603-9) 0.41 K/UL See_Comment [Automated messa ge] The system which generated this result transmitted reference range: 0.20-1.00 K/UL. The reference range was not used to interpret this result as normal/abnormal. ABSOLUTE NEUTROPHILS (test code = 44426-8) 3.57 K/UL See_Comment [Automated messa ge] The system which generated this result transmitted reference range: 1.50-7.50 K/UL. The reference range was not used to interpret this result as normal/abnormal. BASOPHILS (test code = 78569-1) 0.7 % EOSINOPHILS (test code = 98122-6) 2.9 % HEMATOCRIT (test code = 50376-2) 50.3 % See_Comment [Automated messa ge] The system which generated this result transmitted reference range: 40.0-51.0 %. The reference range was not used to interpret this result as normal/abnormal. HEMOGLOBIN (test code = 718-7) 16.1 G/DL See_Comment [Automated messa ge] The system which generated this result transmitted reference range: 13.5-17.0 G/DL. The reference range was not used to interpret this result as normal/abnormal. LYMPHOCYTES (test code = 98814-9) 31.4 % MCH (test code = 76666-1) 26.6 PG See_Comment [Automated messa ge] The system which generated this result transmitted reference range: 25.0-33.0 PG. The reference range was not used to interpret this result as normal/abnormal. MCHC (test code = 15744-0) 32.0 G/DL See_Comment [Automated messa ge] The system which generated this result transmitted reference range: 31.0-36.0 G/DL. The reference range was not used to interpret this result as normal/abnormal. MCV (test code = 19403-4) 83.0 fL See_Comment [Automated messa ge] The system which generated this result transmitted reference range: 80.0-99.0 fL. The reference range was not used to interpret this result as normal/abnormal. MONOCYTES (test code = 08327-1) 6.7 % NEUTROPHILS (test code = 83920-8) 58.0 % PLATELET COUNT (test code = 80487-1) 276 K/UL See_Comment [Automated messa ge] The system which generated this result transmitted reference range: 130-400 K/UL. The reference range was not used to interpret this result as normal/abnormal. RBC (test code = 59716-2) 6.06 M/UL See_Comment [Automated messa ge] The system which generated this result transmitted reference range: 4.50-6.10 M/UL. The reference range was not used to interpret this result as normal/abnormal. RDW (test code = 69322-5) 13.0 % See_Comment [Automated messa ge] The system which generated this result transmitted reference range: 11.5-15.0 %. The reference range was not used to interpret this result as normal/abnormal. WBC (test code = 94619-2) 6.2 K/UL See_Comment [Automated messa ge] The system which generated this result transmitted reference range: 3.5-11.0 K/UL. The reference range was not used to interpret this result as normal/abnormal. CULTURE, [id number] 00:00:00* Test Item Value Reference Range Interpretation Comme nts CULTURE, URINE (test code = 630-4) SPECIMEN NUMBER: [id number] CBC W/AUTO [id number] 00:00:00* Test Item Value Reference Range Interpretation Comme nts NUCLEATED RBCS (test code = 23929-0) 0.0 /100 WBC'S See_Comment [Automated messa ge] The system which generated this result transmitted reference range: 0.0 /100 WBC'S. The reference range was not used to interpret this result as normal/abnormal. ABSOLUTE EOSINOPHILS (test code = 83133-7) 0.17 K/UL See_Comment [Automated messa ge] The system which generated this result transmitted reference range: 0.00-0.50 K/UL. The reference range was not used to interpret this result as normal/abnormal. ABSOLUTE LYMPHOCYTES (test code = 13036-0) 1.92 K/UL See_Comment [Automated messa ge] The system which generated this result transmitted reference range: 1.00-4.00 K/UL. The reference range was not used to interpret this result as normal/abnormal. ABSOLUTE MONOCYTES (test code = 85458-3) 0.40 K/UL See_Comment [Automated messa ge] The system which generated this result transmitted reference range: 0.20-1.00 K/UL. The reference range was not used to interpret this result as normal/abnormal. ABSOLUTE NEUTROPHILS (test code = 66961-1) 3.37 K/UL See_Comment [Automated messa ge] The system which generated this result transmitted reference range: 1.50-7.50 K/UL. The reference range was not used to interpret this result as normal/abnormal. BASOPHILS (test code = 36808-7) 0.5 % EOSINOPHILS (test code = 98587-8) 2.9 % HEMATOCRIT (test code = 68876-1) 47.7 % See_Comment [Automated messa ge] The system which generated this result transmitted reference range: 40.0-51.0 %. The reference range was not used to interpret this result as normal/abnormal. HEMOGLOBIN (test code = 718-7) 15.7 G/DL See_Comment [Automated messa ge] The system which generated this result transmitted reference range: 13.5-17.0 G/DL. The reference range was not used to interpret this result as normal/abnormal. LYMPHOCYTES (test code = 41350-5) 32.4 % MCH (test code = 70583-5) 27.6 PG See_Comment [Automated messa ge] The system which generated this result transmitted reference range: 25.0-33.0 PG. The reference range was not used to interpret this result as normal/abnormal. MCHC (test code = 59384-1) 32.9 G/DL See_Comment [Automated messa ge] The system which generated this result transmitted reference range: 31.0-36.0 G/DL. The reference range was not used to interpret this result as normal/abnormal. MCV (test code = 83738-9) 83.8 fL See_Comment [Automated messa ge] The system which generated this result transmitted reference range: 80.0-99.0 fL. The reference range was not used to interpret this result as normal/abnormal. MONOCYTES (test code = 07666-8) 6.8 % NEUTROPHILS (test code = 95252-8) 56.9 % PLATELET COUNT (test code = 35553-2) 235 K/UL See_Comment [Automated [employer]] The system which generated this result transmitted reference range: 130-400 K/UL. The reference range was not used to interpret this result as normal/abnormal. RBC (test code = 02009-1) 5.69 M/UL See_Comment [Automated [employer]] The system which generated this result transmitted reference range: 4.50-6.10 M/UL. The reference range was not used to interpret this result as normal/abnormal. RDW (test code = 71790-6) 13.0 % See_Comment [Automated [employer]] The system which generated this result transmitted reference range: 11.5-15.0 %. The reference range was not used to interpret this result as normal/abnormal. WBC (test code = 29270-5) 5.9 K/UL See_Comment [Automated [employer]] The system which generated this result transmitted reference range: 3.5-11.0 K/UL. The reference range was not used to interpret this result as normal/abnormal. Abdomen Exam CompleteAbdomen Exam Complete
[2025-03-09] MEDS ORDERED: TETRACAINE HCL 0.5% 4ML OPTH ONE (08:26)
--- NOTE | 2025-03-09 09:08 | EDPHYS ---
Physician Documentation [facility] Name: Js Cardenas Age: 34 yrs Sex: Male : 1990 Arrival Date: 03/09/2025 Time: 07:42 Bed 20 Private MD: ED Physician Phan Reed HPI: 03/09 09:50 This 34 yrs old Male presents to ER via Ambulatory with complaints of Redness ms3 of Eye. 09:50 34-year-old male with past medical history of diabetes presents to the emergency ms3 department for right eye redness and irritation. Patient states he was grinding metal with an angle precision lens grinder yesterday without safety glasses on. Patient states initially he did not feel anything until 30 minutes after he had finished the project. Patient is denying pain at this time. He denies any alleviating or inciting factors.. Historical: - Allergies: 07:58 No Known Allergies; jl7 - Home Meds: 07:58 Mounjaro subcutaneous [Active]; Metformin Oral [Active]; jl7 - PMHx: 07:58 Diabetes mellitus; jl7 - Immunization history:: Adult Immunizations not up to date. - Infectious Disease History:: Denies. - Social history:: Smoking status: Patient denies any tobacco usage or history of. ROS: 09:50 Constitutional: Negative for fever, and chills. Cardiovascular: Negative for chest ms3 pain, and palpitations. Respiratory: Negative for shortness of breath, cough, wheezing, and pleuritic chest pain, Abdomen/GI: Negative for abdominal pain, nausea, vomiting, diarrhea, and constipation, 09:50 Eyes: Positive for foreign body sensation, Negative for blurry vision, Exam: 09:50 Constitutional: This is a well developed, well nourished patient who is awake, alert, ms3 and in no acute distress. Cardiovascular: Regular rate and rhythm with a normal S1 and S2. No gallops, murmurs, or rubs. Normal PMI, no JVD. No pulse deficits. Respiratory: Lungs have equal breath sounds bilaterally, clear to auscultation and percussion. No rales, rhonchi or wheezes noted. No increased work of breathing, no retractions or nasal flaring. Abdomen/GI: Soft, non-tender, with normal bowel sounds. No distension or tympany. No guarding or rebound. No evidence of tenderness throughout. MS/ Extremity: Pulses equal, no cyanosis. Neurovascular intact. Full, normal range of motion. Neuro: Awake and alert, GCS 15, oriented to person, place, time, and situation. Cranial nerves II-XII grossly intact. Motor strength 5/5 in all extremities. Sensory grossly intact. Cerebellar exam normal. Normal gait. 09:50 Eyes: Periorbital structures: appear normal, Pupils: equal, round, and reactive to light and accomodation, Extraocular movements: no acute changes, Conjunctiva: injected, in the right eye, Self lamp exam reveals 2 foreign bodies in right eye at 3 o'clock position. Vital Signs: 07:56 BP 122 / 82; Pulse 85; Resp 1; Temp 97.3; Pulse Ox 99% ; Weight 63.5 kg; Height 5 ft. 6 jl7 in. ; Pain 0/10; 08:35 BP 123 / 90; Pulse 79; Resp 18; Pulse Ox 100% ; kn 09:00 BP 110 / 74; Pulse 82; Resp 16; Pulse Ox 100% ; Pain 0/10; kn 07:56 Body Mass Index 22.60 (63.50 kg, 167.64 cm) jl7 07:56 Pain Scale: Adult [facility] 09:00 Pain Scale: Adult Visual Acuity: 08:35 Left Eye Visual acuity 20/30, Pupil size 3 mm, Normal, Brisk, React To Light; Right Eye kn Visual acuity 20/20, Pupil size 3 mm, Normal, Brisk, React To Light; Both Eyes Visual acuity 20/20; With Lenses; Procedures: 09:50 Foreign Body Removal: a piece of metal, from the right eye, conjunctiva by using a ms3 cotton-tipped swab, Dressing: none, The patient tolerated the removal well, 1 of 2 foreign bodies removed. MDM: 08:38 Medical Screening Exam initiated ms3 09:50 Differential diagnosis: Foreign body vs Conjunctivitis vs Corneal Abrasion. Data ms3 reviewed: vital signs, nurses notes, and as a result, I will discharge patient. Management of patient was discussed with the following: Financial Institution Manager: Dr Garcia- Will see in clinic tomorrow. I considered the following discharge prescriptions or medication management in the emergency department Medications were administered in the Emergency Department. See MAR. Counseling: I had a detailed discussion with the patient and/or guardian regarding the historical points, exam findings, and any diagnostic results supporting the discharge/admit diagnosis, the need for outpatient follow up, to return to the emergency department if symptoms worsen or persist or if there are any questions or concerns that arise at home. ED course: Discussed retained foreign body in right eye with patient. Patient is to follow-up with Dr. Garcia tomorrow. Patient understands and agrees with plan. All questions were answered. Return precautions discussed include worsening symptoms, or any other concerns. 03/09 07:55 Order name: Visual Acuity; Complete Time: 08:34 ms3 03/09 08:05 Order name: Eye Tray; Complete Time: 08:33 ms3 Administered Medications: 09:00 Drug: Tetracaine Ophthalmic Drops 0.5 % 1 drops Ophthalmic once Route: Ophthalmic; kn Site: right eye; 09:15 Follow up: Response: No adverse reaction kn Disposition Summary: 03/09/25 09:08 Discharge Ordered Notes: Location: Home ms3 Condition: Stable ms3 Diagnosis - Foreign body right eye ms3 - Retained foreign body right eye ms3 Followup: ms3 - With: Jaswinder Garcia MD - When: 1 - 2 days - Reason: Recheck today's complaints Discharge Instructions: - Discharge Summary Sheet ms3 - Eye Foreign Body, [id number] ms3 Forms: - Medication Reconciliation Form ms3 - Antibiotic Education ms3 - Prescription Opioid Use ms3 - Patient Portal Instructions ms3 - Leadership Thank You Letter ms3 Signatures: Fabienne Josue RN RN jl7 Phan Reed DO DO ms3 VELASQUEZ STRICKLAND RN SHEILA kn
--- NOTE | 2025-03-09 09:08 | ER ---
Nurse's Notes [facility] Name: Js Cardenas Age: 34 yrs Sex: Male : 1990 Arrival Date: 03/09/2025 Time: 07:42 Bed 20 Private MD: Diagnosis: Foreign body right eye;Retained foreign body right eye Presentation: 03/09 07:56 Chief complaint: Patient states: Spark flew in RIGHT eye on Sunday while cutting jl7 wood, feels like something is in eye, redness noted, denies pain. Coronavirus screen: At this time, the client does not indicate any symptoms associated with coronavirus-19. Ebola Screen: No symptoms or risks identified at this time. Initial Sepsis Screen: Does the patient meet any 2 criteria? No. Patient's initial sepsis screen is negative. Does the patient have a suspected source of infection? No. Patient's initial sepsis screen is negative. Risk Assessment: Do you want to hurt yourself or someone else? Patient reports no desire to harm self or others. Onset of symptoms was March 07, 2025. 07:56 Method Of Arrival: Ambulatory [facility] 07:56 Acuity: AMINAH 4 jl7 Triage Assessment: 07:58 General: Appears in no apparent distress. uncomfortable, Behavior is calm, cooperative, jl7 appropriate for age. Pain: Denies pain. EENT: Sclera/Cornea are reddened in right eye. Historical: - Allergies: 07:58 No Known Allergies; jl7 - Home Meds: 07:58 Mounjaro subcutaneous [Active]; Metformin Oral [Active]; jl7 - PMHx: 07:58 Diabetes mellitus; jl7 - Immunization history:: Adult Immunizations not up to date. - Infectious Disease History:: Denies. - Social history:: Smoking status: Patient denies any tobacco usage or history of. Screenin:35 [facility] ED Fall Risk Assessment (Adult) History of falling in the last 3 months, kn including since admission No falls in past 3 months (0 pts) Confusion or Disorientation No (0 pts) Intoxicated or Sedated No (0 pts) Impaired Gait No (0 pts) Mobility Assist Device Used No (0 pt) Altered Elimination No (0 pt) Score/Fall Risk Level 0 - 2 = Low Risk Oriented to surroundings, Maintained a safe environment. Abuse screen: Denies threats or abuse. Denies injuries from another. Nutritional screening: No deficits noted. Tuberculosis screening: No symptoms or risk factors identified. Assessment: 08:35 General: Appears in no apparent distress. comfortable. Neuro: No deficits noted. kn Velazco Agitation-Sedation Scale (RASS): 0 - Alert and Calm Level of Consciousness is Oriented to. Cardiovascular: No deficits noted. Respiratory: No deficits noted. Vital Signs: 07:56 BP 122 / 82; Pulse 85; Resp 1; Temp 97.3; Pulse Ox 99% ; Weight 63.5 kg; Height 5 ft. 6 jl7 in. ; Pain 0/10; 08:35 BP 123 / 90; Pulse 79; Resp 18; Pulse Ox 100% ; kn 09:00 BP 110 / 74; Pulse 82; Resp 16; Pulse Ox 100% ; Pain 0/10; kn 07:56 Body Mass Index 22.60 (63.50 kg, 167.64 cm) jl7 07:56 Pain Scale: Adult jl7 09:00 Pain Scale: Adult Visual Acuity: 08:35 Left Eye Visual acuity 20/30, Pupil size 3 mm, Normal, Brisk, React To Light; Right Eye kn Visual acuity 20/20, Pupil size 3 mm, Normal, Brisk, React To Light; Both Eyes Visual acuity 20/20; With Lenses; ED Course: 07:45 Patient arrived in ED. mr 07:55 Phan Reed DO is Attending Physician. ms3 07:58 Triage completed. jl7 07:58 Arm band placed on right wrist. jl7 08:23 VELASQUEZ STRICKLAND, RN is Primary Nurse. kn 08:35 No apparent distress. kn 08:35 Patient has correct armband on for positive identification. Bed in low position. Call kn light in reach. Side rails up X 1. Provided Education on: use of call light. 08:35 No provider procedures requiring assistance completed. kn 09:06 Jaswinder Garcia MD is Referral Physician. ms3 09:16 Patient did not have IV access during this emergency room visit. kn Administered Medications: 09:00 Drug: Tetracaine Ophthalmic Drops 0.5 % 1 drops Ophthalmic once Route: Ophthalmic; kn Site: right eye; 09:15 Follow up: Response: No adverse reaction kn Medication: 09:17 VIS not applicable for this client. kn Outcome: 09:08 Discharge ordered by . ms3 09:16 Discharged to home ambulatory, kn 09:16 Condition: stable 09:16 Discharge instructions given to patient, Instructed on discharge instructions, follow up and referral plans. 09:17 Patient left the ED. kn Signatures: Fanny Mckinnon, Jose Ramon Reg mr JosueFabienne, RN RN jl7 Phan Reed DO DO ms3 VELASQUEZ STRICKLAND, SHEILA steward
[2025-03-09 09:34] VITALS: TEMP 97.3
[2025-03-09 09:36] VITALS: O2SAT 100
[2025-03-09 09:37] VITALS: BP 110/74
== END 2025-03-09 09:17 | disposition home or self-care (01) ==
LOC: ER 07:42
DX: T15.11XA Foreign body in conjunctival sac, right eye, initial encounter (principal)
CPT/HCPCS: 99283